=== PATIENT | male | born 1975 | race African-American/Black ===

== ENCOUNTER 2020-12-06 09:41 | Emergency (ER) | payer OTHER ==
[2020-12-06] MEDS ORDERED: HYDROcodone/Acetaminophen 10/325 mg Tablet ONE (12:49)
== END 2020-12-06 14:11 | disposition short-term general hospital (02) ==
LOC: CSHERS 09:41
DX: S02.602A Fracture of unspecified part of body of left mandible, initial encounter for closed fracture (principal); S02.671A Fracture of alveolus of right mandible, initial encounter for closed fracture; I10 Essential (primary) hypertension; F17.210 Nicotine dependence, cigarettes, uncomplicated; Y09 Assault by unspecified means
CPT/HCPCS: 70450; 70486